=== PATIENT | male | born 1935 | race Caucasian/White ===

== ENCOUNTER → 2016-11-17 | Outpatient (CLI) | payer OTHER, BC | END | disposition home or self-care (01) | DX: R26.2 Difficulty in walking, not elsewhere classified (principal); M62.81 Muscle weakness (generalized); M25.551 Pain in right hip; M25.651 Stiffness of right hip, not elsewhere classified | CPT/HCPCS: 97110 GP; 97150 GO; 97161 GP; 97165 GO; G8978 GP; G8979 GP; G8980 GP; G8987 GO; G8988 GO; G8989 GO ==

== ENCOUNTER 2016-12-07 08:23 | Inpatient (IN) | payer OTHER, BC ==
[~2016-12-07] VITALS: Ht 170.2 cm; Wt 76.7 kg
[~2016-12-07 08:23] MED LIST: ALEVE220 M2 PO; HYTRIN5 MG PO; LO-DOSE ASPIRIN81 M2 PO; ZOCOR40 MG PO
[2016-12-07 09:04] VITALS: BP 154/70
[2016-12-07 14:58] LABS: MCHC 28.8 G/DL (30.0-36.0); MCV 83.6 FL (86-99); MEAN PLAT.VOLUME 9.7 uM^3 (9.0-12.4); PLATELET COUNT 263 K/uL (156-360); RBC DIS.WIDTH-CV 16.3 % (11.8-14.6); RBC DIS.WIDTH-SD 49.2 % (39-53); RED BLOOD COUNT 3.83 M/uL (4.00-5.50); WHITE BLOOD COUNT 13.6 K/uL (4.1-10.2)
[2016-12-07 15:13] VITALS: BP 147/65
[2016-12-07 20:04] VITALS: BP 144/63
[2016-12-08 00:21] VITALS: BP 138/60
[2016-12-08 04:11] VITALS: BP 121/59
[2016-12-08 04:59] LABS: HEMATOCRIT 31.2 % (38.0-50.0); MCV 81.3 FL (86-99)
[2016-12-08 05:06] LABS: CHLORIDE 105 mEq/L (99-109); POTASSIUM 4.1 mEq/L (3.7-5.4); SODIUM 135 mEq/L (136-147)
[2016-12-08 05:08] LABS: GLUCOSE 146 mg/dL (70-99)
[2016-12-08 05:09] LABS: ANION GAP 8 MEQ/L (2-14)
[2016-12-08 05:12] LABS: GFR ESTIMATE (CALCULATED) > 59 mL/min/
[2016-12-08 05:13] LABS: UREA NITROGEN (BUN) 7 mg/dL (9-23)
[2016-12-08 08:00] VITALS: BP 122/57
[2016-12-08 11:59] VITALS: BP 135/64
[2016-12-08 15:39] VITALS: BP 159/67
[2016-12-08] MEDS ORDERED: HYDROCODON-ACE1 EAC7 PO (19:28)
[2016-12-08] MEDS ORDERED: LOVENOX40 MG/0.4 SC (19:28)
[2016-12-08 20:01] VITALS: BP 158/70
[2016-12-09 00:16] VITALS: BP 132/62
[2016-12-09 04:20] VITALS: BP 140/61
[2016-12-09 08:00] VITALS: BP 130/59
[2016-12-09 11:59] VITALS: BP 115/56
[2016-12-09 16:07] VITALS: BP 122/59
[2016-12-09 20:02] VITALS: BP 138/65
[2016-12-10] VITALS (8 sets, daily range): BP systolic 119–147; BP diastolic 58–65
[2016-12-11 04:45] VITALS: BP 131/62
[2016-12-11 08:08] VITALS: BP 138/64
[2016-12-11 12:16] VITALS: BP 119/57
== END 2016-12-11 13:05 | DRG 470 ==
LOC: 2SOUTH 08:23 → 3WEST 08:23 → 2SOUTH 09:17 → 3WEST 15:03 → 3EAST 12-10 16:46
PROVIDERS: Orthopaedic Surgery
PROC: 0SR902A Replacement of Right Hip Joint with Metal on Polyethylene Synthetic Substitute, Uncemented, Open Approach (ICD-10-PCS; 2016-12-07)
PROC: 0BB63ZX Excision of Right Lower Lobe Bronchus, Percutaneous Approach, Diagnostic (ICD-10-PCS; principal; 2016-12-10)
DX: M16.11 Unilateral primary osteoarthritis, right hip (principal); C34.31 Malignant neoplasm of lower lobe, right bronchus or lung; R59.1 Generalized enlarged lymph nodes; E78.5 Hyperlipidemia, unspecified; Z87.891 Personal history of nicotine dependence; R91.8 Other nonspecific abnormal finding of lung field; E78.00 Pure hypercholesterolemia, unspecified; N40.1 Benign prostatic hyperplasia with lower urinary tract symptoms; G25.0 Essential tremor; R73.9 Hyperglycemia, unspecified; I10 Essential (primary) hypertension; D62 Acute posthemorrhagic anemia
CPT/HCPCS: 71010; 71020; 71260; 73501; 77012; 80048; 85014; 85018; 85027; 88305; 88341 TC; 88342 TC; 97530 GP; J0131; J0690; J1650; J3010; J7030; J7040; J7050

== ENCOUNTER 2017-01-07 12:41 | Day surgery (SDC) | payer OTHER, BC ==
[~2017-01-07] VITALS: Ht 167.6 cm; Wt 75.4 kg
[~2017-01-07 12:41] MED LIST changes: +FERROUS SULFAT325 MG PO; +HYDROCODON-ACE1 EAC7 PO; +LOVENOX40 MG/0.4 SC
[2017-01-07 13:19] VITALS: BP 155/71
[2017-01-07 13:43] LABS: BASOPHIL COUNT 0.1 K/uL (0-0.1); EOSINOPHIL COUNT 0.4 K/uL (0-0.3); HEMATOCRIT 37.4 % (38.0-50.0); IMMATURE GRANULOCYTE (%) 0.8 % (0.0-0.7); IMMATURE GRANULOCYTE COUNT 0.1 K/uL; INSTRUMENT ABS NEUTROPHIL CT 10.9 K/uL; LYMPHOCYTE COUNT 1.1 K/uL (1.0-2.8); MCH 25.4 PG (29.0-34.0); MCHC 30.7 G/DL (30.0-36.0); MCV 82.7 FL (86-99); MEAN PLAT.VOLUME 9.7 uM^3 (9.0-12.4); NEUTROPHIL (%) 80.7 % (45-76); NEUTROPHIL COUNT 10.9 K/uL (1.8-6.4); PLATELET COUNT 292 K/uL (156-360); RBC DIS.WIDTH-SD 47.9 % (39-53); RED BLOOD COUNT 4.52 M/uL (4.00-5.50); WHITE BLOOD COUNT 13.5 K/uL (4.1-10.2)
[2017-01-07 13:55] LABS: INTER. NORMALIZED RATIO 1.1; PROTHROMBIN TIME 11.5 (9.2-11.2)
[2017-01-07 14:24] LABS: ALKALINE PHOSPHATASE 139 IU/L (3-129); ANION GAP 10 MEQ/L (2-14); CHLORIDE 102 MEQ/L (99-109); GFR ESTIMATE (CALCULATED) > 59 mL/min/; GLUCOSE 121 mg/dL (70-99); POTASSIUM 3.9 MEQ/L (3.7-5.4); SAMPLE HEMOLYSIS CHECK 0; SAMPLE ICTERIC CHECK 0; SAMPLE LIPEMIA CHECK 0; SODIUM 137 MEQ/L (136-147); TOTAL BILIRUBIN 0.7 MG/DL (0.0-1.0); UREA NITROGEN (BUN) 11 mg/dL (9-23)
[2017-01-07] MEDS ORDERED: HYDROCODON-ACE1 EAC7 PO (15:47)
[2017-01-07] MEDS ORDERED: COLACE100 MG PO (15:47)
[2017-01-07 16:55] VITALS: BP 142/68
[2017-01-07 17:55] VITALS: BP 130/61
== END 2017-01-07 18:05 | disposition home or self-care (01) ==
LOC: SDC 12:41
PROVIDERS: Thoracic Surgery (Cardiothoracic Vascular Surgery)
PROC: 07B74ZX Excision of Thorax Lymphatic, Percutaneous Endoscopic Approach, Diagnostic (ICD-10-PCS; principal; 2017-01-07)
DX: R59.0 Localized enlarged lymph nodes (principal); C34.31 Malignant neoplasm of lower lobe, right bronchus or lung; J60 Coalworker's pneumoconiosis; Z87.891 Personal history of nicotine dependence; E78.5 Hyperlipidemia, unspecified; Z96.641 Presence of right artificial hip joint; Z85.828 Personal history of other malignant neoplasm of skin; Z80.0 Family history of malignant neoplasm of digestive organs
CPT/HCPCS: 80053; 85025; 85610; 88305; J0690; J2405; J3010

== ENCOUNTER → 2017-01-15 | Outpatient (CLI) | payer OTHER, BC ==
[~2017-01-15] MED LIST changes: +COLACE100 MG PO
[2017-01-15 13:05] LABS: BASE EXCESS 3.2 mEq/L (-3 to +3); BICARBONATE 26.9 mEq/L (22-26); CARBOXY HGB 2.3 % (0-5); METHEMOGLOBIN 1.3 % (0-1.5); PCO2 37 mm Hg (35-45); PO2 67 mm Hg (80-100); pH 7.47 (7.35-7.45)
[2017-01-15 13:06] LABS: COMMENTS - BLOOD GASES AC+; DEVICE ROOM AIR; FI02 21 %; SITE LR; TOTAL RESP RATE 16 resp/min
== END | disposition home or self-care (01) ==
LOC: RES 12:42
PROVIDERS: Thoracic Surgery (Cardiothoracic Vascular Surgery)
DX: R09.02 Hypoxemia (principal); J98.4 Other disorders of lung; R94.2 Abnormal results of pulmonary function studies; C34.90 Malignant neoplasm of unspecified part of unspecified bronchus or lung
CPT/HCPCS: 36600; 82803; 94060; 94726; 94729

== ENCOUNTER 2017-07-26 08:04 | Inpatient (IN) | payer OTHER, BC ==
[~2017-07-26] VITALS: Ht 167.6 cm; Wt 65.8 kg
[~2017-07-26 08:04] MED LIST changes: +ENDOCET 5-3251 EACH PO; +SIMVASTATIN80 MG PO; +STOOL SOFTENER100 MG PO
[2017-07-26 08:33] LABS: BASE EXCESS -0.4 mEq/L (-3 to +3); BICARBONATE 21.5 mEq/L (22-26); CARBOXY HGB 2.7 % (0-5); COMMENTS - BLOOD GASES A+C+; DEVICE MASK VENT; FI02 100 %; METHEMOGLOBIN 1.1 % (0-1.5); MODE NSPONT; PCO2 27 mm Hg (35-45); PO2 402 mm Hg (80-100); SITE RR; pH 7.51 (7.35-7.45)
[2017-07-26 08:34] LABS: PEEP 5 CM/H20; PRES. SUPPORT 15 CM/H2O; TOTAL RESP RATE 31 resp/min
[2017-07-26 08:40] LABS: BASOPHIL (%) 0.3 % (0-1); EOSINOPHIL (%) 1.8 % (0-5); EOSINOPHIL COUNT 0.2 K/uL (0-0.3); HEMATOCRIT 38.6 % (38.0-50.0); HEMOGLOBIN 12.3 G/DL (12.5-16.6); IMMATURE GRANULOCYTE (%) 0.8 % (0.0-0.7); LYMPHOCYTE (%) 4.5 % (15-42); LYMPHOCYTE COUNT 0.4 K/uL (1.0-2.8); MCH 28.1 PG (29.0-34.0); MCHC 31.9 G/DL (30.0-36.0); MCV 88.1 FL (86-99); MONOCYTE (%) 8.5 % (3-12); MONOCYTE COUNT 0.7 K/uL (0-0.8); NEUTROPHIL (%) 84.1 % (45-76); NEUTROPHIL COUNT 7.3 K/uL (1.8-6.4); PLATELET COUNT 120 K/uL (156-360); RBC DIS.WIDTH-CV 17.2 % (11.8-14.6); RBC DIS.WIDTH-SD 55.4 % (39-53); RED BLOOD COUNT 4.38 M/uL (4.00-5.50); WHITE BLOOD COUNT 8.7 K/uL (4.1-10.2)
[2017-07-26 08:46] LABS: INTER. NORMALIZED RATIO 1.2
[2017-07-26 08:48] LABS: PTT 29.8 SEC (25-37)
[2017-07-26 08:53] LABS: CHLORIDE 102 mEq/L (99-109); POTASSIUM 4.2 mEq/L (3.7-5.4); SODIUM 134 mEq/L (136-147)
[2017-07-26 08:54] LABS: GLUCOSE 203 mg/dL (70-99)
[2017-07-26 08:58] LABS: CREATININE 0.9 mg/dL (0.6-1.3); GFR ESTIMATE (CALCULATED) > 59 mL/min/ (58.99-99999)
[2017-07-26 08:59] LABS: UREA NITROGEN (BUN) 17 mg/dL (9-23)
[2017-07-26 09:01] LABS: TROP-I INTERPRETATION NEGATIVE; TROPONIN-I 0.04 ng/mL (0.0-0.30)
[2017-07-26] MEDS ORDERED: PROVENTIL HFA6.7 GM IH (10:55)
[2017-07-26] MEDS ORDERED: HERB-LAX (10:59)
[2017-07-26 13:07] VITALS: BP 114/64
[2017-07-26 16:50] VITALS: BP 109/60
[2017-07-26 19:35] VITALS: BP 99/53
[2017-07-27 00:09] VITALS: BP 121/65
[2017-07-27 03:56] VITALS: BP 107/64
[2017-07-27 06:49] LABS: HEMATOCRIT 36.5 % (38.0-50.0); HEMOGLOBIN 11.5 G/DL (12.5-16.6); MCH 28.3 PG (29.0-34.0); MCHC 31.5 G/DL (30.0-36.0); MCV 89.7 FL (86-99); PLATELET COUNT 130 K/uL (156-360); RBC DIS.WIDTH-CV 16.5 % (11.8-14.6); RBC DIS.WIDTH-SD 54.7 % (39-53); RED BLOOD COUNT 4.07 M/uL (4.00-5.50)
[2017-07-27 07:11] LABS: ALBUMIN 2.8 G/DL (3.2-4.8); ALKALINE PHOSPHATASE 125 IU/L (3-129); ALT (GPT) 9 IU/L (3-49); AST (GOT) 12 IU/L (2-34); CHLORIDE 101 MEQ/L (99-109); GFR ESTIMATE (CALCULATED) > 59 mL/min/ (58.99-99999); GLUCOSE 303 mg/dL (70-99); POTASSIUM 4.7 MEQ/L (3.7-5.4); SODIUM 134 MEQ/L (136-147); TOTAL BILIRUBIN 0.8 MG/DL (0.0-1.0); UREA NITROGEN (BUN) 19 mg/dL (9-23)
[2017-07-27 08:00] VITALS: BP 116/66
[2017-07-27 08:42] LABS: Estimated Average Glucose 117 mg/dL (70-123); HEMOGLOBIN A1c (GLYCOHEMOGLOB) 5.7 % HGB (Below 5.7)
[2017-07-27 11:52] VITALS: BP 110/62
[2017-07-27 16:22] VITALS: BP 115/66
[2017-07-27 19:40] VITALS: BP 111/79
[2017-07-28 00:31] VITALS: BP 101/55
[2017-07-28 03:36] VITALS: BP 107/54
[2017-07-28 06:42] LABS: HEMATOCRIT 33.5 % (38.0-50.0); HEMOGLOBIN 10.2 G/DL (12.5-16.6); MCH 27.6 PG (29.0-34.0); MCHC 30.4 G/DL (30.0-36.0); MCV 90.5 FL (86-99); PLATELET COUNT 125 K/uL (156-360); RBC DIS.WIDTH-CV 16.3 % (11.8-14.6); RBC DIS.WIDTH-SD 54.1 % (39-53); WHITE BLOOD COUNT 12.3 K/uL (4.1-10.2)
[2017-07-28 07:12] LABS: ALBUMIN 2.6 G/DL (3.2-4.8); ALKALINE PHOSPHATASE 104 IU/L (3-129); ALT (GPT) 10 IU/L (3-49); AST (GOT) 10 IU/L (2-34); CHLORIDE 104 MEQ/L (99-109); GFR ESTIMATE (CALCULATED) > 59 mL/min/ (58.99-99999); GLUCOSE 172 mg/dL (70-99); POTASSIUM 4.3 MEQ/L (3.7-5.4); SODIUM 138 MEQ/L (136-147); TOTAL PROTEIN 4.7 G/DL (6.4-8.3); UREA NITROGEN (BUN) 21 mg/dL (9-23)
[2017-07-28 07:13] LABS: TOTAL BILIRUBIN 0.6 MG/DL (0.0-1.0)
[2017-07-28 07:50] VITALS: BP 111/61
[2017-07-28 11:50] VITALS: BP 118/64
[2017-07-28 16:15] VITALS: BP 105/52
[2017-07-28 20:26] VITALS: BP 114/54
[2017-07-29 00:10] VITALS: BP 115/63
[2017-07-29 06:38] LABS: HEMATOCRIT 31.7 % (38.0-50.0); HEMOGLOBIN 9.7 G/DL (12.5-16.6); MCH 27.5 PG (29.0-34.0); MCHC 30.6 G/DL (30.0-36.0); MCV 89.8 FL (86-99); PLATELET COUNT 125 K/uL (156-360); RBC DIS.WIDTH-CV 16.5 % (11.8-14.6); RBC DIS.WIDTH-SD 54.5 % (39-53); RED BLOOD COUNT 3.53 M/uL (4.00-5.50); WHITE BLOOD COUNT 11.3 K/uL (4.1-10.2)
[2017-07-29 07:51] VITALS: BP 144/66
[2017-07-29 08:00] LABS: ALBUMIN 2.7 G/DL (3.2-4.8); CHLORIDE 105 MEQ/L (99-109); POTASSIUM 4.4 MEQ/L (3.7-5.4); SODIUM 137 MEQ/L (136-147); TOTAL BILIRUBIN 0.7 MG/DL (0.0-1.0)
[2017-07-29 08:06] LABS: ALKALINE PHOSPHATASE 95 IU/L (3-129); ALT (GPT) 10 IU/L (3-49); AST (GOT) 12 IU/L (2-34); CREATININE 0.8 MG/DL (0.6-1.3); GFR ESTIMATE (CALCULATED) > 59 mL/min/ (58.99-99999); GLUCOSE 136 mg/dL (70-99); TOTAL PROTEIN 4.9 G/DL (6.4-8.3); UREA NITROGEN (BUN) 20 mg/dL (9-23)
[2017-07-29 15:23] VITALS: BP 138/63
[2017-07-29 23:55] VITALS: BP 127/60
[2017-07-30 06:03] LABS: HEMATOCRIT 32.7 % (38.0-50.0); HEMOGLOBIN 10.2 G/DL (12.5-16.6); MCHC 31.2 G/DL (30.0-36.0); MCV 89.8 FL (86-99); PLATELET COUNT 139 K/uL (156-360); RBC DIS.WIDTH-CV 16.6 % (11.8-14.6); RED BLOOD COUNT 3.64 M/uL (4.00-5.50); WHITE BLOOD COUNT 9.6 K/uL (4.1-10.2)
[2017-07-30 06:32] LABS: ALBUMIN 2.6 G/DL (3.2-4.8); ALKALINE PHOSPHATASE 90 IU/L (3-129); ALT (GPT) 11 IU/L (3-49); AST (GOT) 13 IU/L (2-34); CHLORIDE 106 MEQ/L (99-109); CREATININE 0.9 MG/DL (0.6-1.3); GFR ESTIMATE (CALCULATED) > 59 mL/min/ (58.99-99999); GLUCOSE 122 mg/dL (70-99); POTASSIUM 4.6 MEQ/L (3.7-5.4); SODIUM 139 MEQ/L (136-147); TOTAL BILIRUBIN 0.8 MG/DL (0.0-1.0); TOTAL PROTEIN 4.5 G/DL (6.4-8.3); UREA NITROGEN (BUN) 17 mg/dL (9-23)
[2017-07-30 07:55] VITALS: BP 140/69
[2017-07-30 16:00] VITALS: BP 129/62
[2017-07-31 00:29] VITALS: BP 144/66
[2017-07-31 06:49] LABS: HEMATOCRIT 33.8 % (38.0-50.0); HEMOGLOBIN 10.3 G/DL (12.5-16.6); MCH 27.4 PG (29.0-34.0); MCHC 30.5 G/DL (30.0-36.0); MCV 89.9 FL (86-99); PLATELET COUNT 124 K/uL (156-360); RBC DIS.WIDTH-CV 16.8 % (11.8-14.6); RBC DIS.WIDTH-SD 55.7 % (39-53); RED BLOOD COUNT 3.76 M/uL (4.00-5.50); WHITE BLOOD COUNT 8.9 K/uL (4.1-10.2)
[2017-07-31 07:15] LABS: ALBUMIN 2.5 G/DL (3.2-4.8); ALKALINE PHOSPHATASE 85 IU/L (3-129); ALT (GPT) 14 IU/L (3-49); AST (GOT) 13 IU/L (2-34); CHLORIDE 107 MEQ/L (99-109); CREATININE 0.8 MG/DL (0.6-1.3); GFR ESTIMATE (CALCULATED) > 59 mL/min/ (58.99-99999); POTASSIUM 4.3 MEQ/L (3.7-5.4); SODIUM 140 MEQ/L (136-147); TOTAL BILIRUBIN 0.7 MG/DL (0.0-1.0); TOTAL PROTEIN 4.5 G/DL (6.4-8.3); UREA NITROGEN (BUN) 16 mg/dL (9-23)
[2017-07-31 07:18] LABS: GLUCOSE 68 mg/dL (70-99)
[2017-07-31 07:27] VITALS: BP 147/67
[2017-07-31 15:10] VITALS: BP 137/63
[2017-08-01 00:04] VITALS: BP 158/72
[2017-08-01 07:20] VITALS: BP 157/67
[2017-08-01 08:34] LABS: HEMATOCRIT 35.7 % (38.0-50.0); HEMOGLOBIN 11.1 G/DL (12.5-16.6); MCHC 31.1 G/DL (30.0-36.0); MCV 89.9 FL (86-99); PLATELET COUNT 134 K/uL (156-360); RBC DIS.WIDTH-CV 16.7 % (11.8-14.6); RBC DIS.WIDTH-SD 55.2 % (39-53); RED BLOOD COUNT 3.97 M/uL (4.00-5.50)
[2017-08-01 09:00] LABS: ALBUMIN 2.8 G/DL (3.2-4.8); ALKALINE PHOSPHATASE 88 IU/L (3-129); ALT (GPT) 14 IU/L (3-49); AST (GOT) 13 IU/L (2-34); CHLORIDE 106 MEQ/L (99-109); CREATININE 0.8 MG/DL (0.6-1.3); GFR ESTIMATE (CALCULATED) > 59 mL/min/ (58.99-99999); GLUCOSE 89 mg/dL (70-99); POTASSIUM 4.3 MEQ/L (3.7-5.4); SODIUM 139 MEQ/L (136-147); TOTAL BILIRUBIN 0.9 MG/DL (0.0-1.0); TOTAL PROTEIN 4.6 G/DL (6.4-8.3); UREA NITROGEN (BUN) 18 mg/dL (9-23)
[2017-08-01 16:14] VITALS: BP 154/68
[2017-08-01 23:29] VITALS: BP 145/69
[2017-08-02 05:52] LABS: HEMATOCRIT 36.1 % (38.0-50.0); HEMOGLOBIN 11.5 G/DL (12.5-16.6); MCH 28.8 PG (29.0-34.0); MCHC 31.9 G/DL (30.0-36.0); MCV 90.5 FL (86-99); NRBC (%) 0.3 /100 WBC (0-0); PLATELET COUNT 140 K/uL (156-360); RBC DIS.WIDTH-CV 16.8 % (11.8-14.6); RBC DIS.WIDTH-SD 56.1 % (39-53); RED BLOOD COUNT 3.99 M/uL (4.00-5.50); WHITE BLOOD COUNT 7.8 K/uL (4.1-10.2)
[2017-08-02 06:32] LABS: ALBUMIN 2.9 G/DL (3.2-4.8); ALKALINE PHOSPHATASE 92 IU/L (3-129); ALT (GPT) 15 IU/L (3-49); AST (GOT) 11 IU/L (2-34); CHLORIDE 104 MEQ/L (99-109); CREATININE 0.9 MG/DL (0.6-1.3); GFR ESTIMATE (CALCULATED) > 59 mL/min/ (58.99-99999); GLUCOSE 181 mg/dL (70-99); POTASSIUM 4.4 MEQ/L (3.7-5.4); SODIUM 138 MEQ/L (136-147); TOTAL BILIRUBIN 0.8 MG/DL (0.0-1.0); TOTAL PROTEIN 4.7 G/DL (6.4-8.3); UREA NITROGEN (BUN) 19 mg/dL (9-23)
[2017-08-02 07:05] VITALS: BP 150/70
[2017-08-02 15:05] VITALS: BP 132/63
[2017-08-03] VITALS: BP 128/78
[2017-08-03 08:34] LABS: HEMATOCRIT 37.6 % (38.0-50.0); HEMOGLOBIN 11.7 G/DL (12.5-16.6); MCH 28.5 PG (29.0-34.0); MCHC 31.1 G/DL (30.0-36.0); MCV 91.7 FL (86-99); PLATELET COUNT 127 K/uL (156-360); RBC DIS.WIDTH-CV 17.3 % (11.8-14.6); RBC DIS.WIDTH-SD 58.4 % (39-53); WHITE BLOOD COUNT 7.3 K/uL (4.1-10.2)
[2017-08-03 09:12] LABS: ALBUMIN 2.7 G/DL (3.2-4.8); ALKALINE PHOSPHATASE 93 IU/L (3-129); ALT (GPT) 19 IU/L (3-49); CHLORIDE 105 MEQ/L (99-109); CREATININE 0.8 MG/DL (0.6-1.3); GFR ESTIMATE (CALCULATED) > 59 mL/min/ (58.99-99999); POTASSIUM 3.9 MEQ/L (3.7-5.4); SODIUM 138 MEQ/L (136-147); TOTAL BILIRUBIN 0.8 MG/DL (0.0-1.0); TOTAL PROTEIN 4.7 G/DL (6.4-8.3); UREA NITROGEN (BUN) 16 mg/dL (9-23)
[2017-08-03 09:19] LABS: AST (GOT) 18 IU/L (2-34); GLUCOSE 99 mg/dL (70-99)
[2017-08-03] MEDS ORDERED: SPIRIVA RESPIMAT4 GM IH (13:00)
[2017-08-03] MEDS ORDERED: PREDNISONE20 MG PO (13:01)
[2017-08-03] MEDS ORDERED: ADVAIR HFA120 INHALA IH (13:01)
[2017-08-03 15:10] VITALS: BP 118/69
== END 2017-08-03 17:51 | disposition home or self-care (01) | DRG 189 ==
LOC: EME → EDBD 08:04 → EDOF 11:18 → 5SOUTH 11:18 → ENRESERV 11:20 → 5SOUTH 12:58
PROVIDERS: Emergency Medicine; Internal Medicine
PROC: 5A09359 Assistance with Respiratory Ventilation, Less than 24 Consecutive Hours, Continuous Negative Airway Pressure (ICD-10-PCS; principal; 2017-07-26)
DX: J96.91 Respiratory failure, unspecified with hypoxia (principal); J18.9 Pneumonia, unspecified organism; J44.1 Chronic obstructive pulmonary disease with (acute) exacerbation; J44.0 Chronic obstructive pulmonary disease with (acute) lower respiratory infection; C34.31 Malignant neoplasm of lower lobe, right bronchus or lung; N40.0 Benign prostatic hyperplasia without lower urinary tract symptoms; D69.6 Thrombocytopenia, unspecified; E78.5 Hyperlipidemia, unspecified; R00.0 Tachycardia, unspecified; Z96.643 Presence of artificial hip joint, bilateral; I10 Essential (primary) hypertension; D64.9 Anemia, unspecified; R91.1 Solitary pulmonary nodule; K59.00 Constipation, unspecified; T38.0X5A Adverse effect of glucocorticoids and synthetic analogues, initial encounter; Y84.2 Radiological procedure and radiotherapy as the cause of abnormal reaction of the patient, or of later complication, without mention of misadventure at the time of the procedure; R73.9 Hyperglycemia, unspecified; Z79.899 Other long term (current) drug therapy; Z99.81 Dependence on supplemental oxygen; Z79.82 Long term (current) use of aspirin; Z87.891 Personal history of nicotine dependence; Z85.828 Personal history of other malignant neoplasm of skin; Z92.21 Personal history of antineoplastic chemotherapy; Z92.3 Personal history of irradiation; Z82.49 Family history of ischemic heart disease and other diseases of the circulatory system
CPT/HCPCS: 36600; 71010; 71020; 71275; 76937; 80048; 80053; 80202; 82803; 82948; 83036; 83880; 84484; 85025; 85027; 85610; 85730; 87040; 87070; 87205; 93005; 94002; 94640; 94640 76; 94760; 94799; 99202; 99281; 99285; C1894; J0456; J0696; J1644; J1815; J2405; J2543; J2930; J3370; J7030; J7040; J7050; J7512; J7644

== ENCOUNTER 2017-09-18 23:27 | Inpatient (IN) | payer OTHER, BC ==
[~2017-09-18] VITALS: Ht 170.2 cm; Wt 70.6 kg
[~2017-09-18 23:27] MED LIST changes: +ADVAIR HFA120 INHALA IH; +HERB-LAX; +PREDNISONE20 MG PO; +PROVENTIL HFA6.7 GM IH; +SPIRIVA RESPIMAT4 GM IH
[2017-09-18 23:50] LABS: HEMATOCRIT 33.9 % (38.0-50.0); MCHC 32.2 G/DL (30.0-36.0); MCV 87.1 FL (86-99); PLATELET COUNT 185 K/uL (156-360); RBC DIS.WIDTH-CV 16.3 % (11.8-14.6); RBC DIS.WIDTH-SD 51.3 % (39-53); RED BLOOD COUNT 3.89 M/uL (4.00-5.50); WHITE BLOOD COUNT 14.4 K/uL (4.1-10.2)
[2017-09-18 23:51] LABS: HEMOGLOBIN 10.9 G/DL (12.5-16.6)
[2017-09-19 00:02] LABS: CHLORIDE 100 mEq/L (99-109); POTASSIUM 3.9 mEq/L (3.7-5.4); SODIUM 133 mEq/L (136-147)
[2017-09-19 00:04] LABS: GLUCOSE 164 mg/dL (70-99)
[2017-09-19 00:08] LABS: CREATININE 0.7 mg/dL (0.6-1.3); GFR ESTIMATE (CALCULATED) > 59 mL/min/ (58.99-99999)
[2017-09-19 00:09] LABS: UREA NITROGEN (BUN) 7 mg/dL (9-23)
[2017-09-19 00:16] LABS: TROP-I INTERPRETATION NEGATIVE; TROPONIN-I 0.01 ng/mL (0.0-0.30)
[2017-09-19 04:02] VITALS: BP 103/58
[2017-09-19 06:16] LABS: BASOPHIL (%) 0.3 % (0-1); EOSINOPHIL (%) 0.1 % (0-5); HEMATOCRIT 31.4 % (38.0-50.0); HEMOGLOBIN 9.7 G/DL (12.5-16.6); IMMATURE GRANULOCYTE (%) 1.1 % (0.0-0.7); LYMPHOCYTE (%) 1.3 % (15-42); LYMPHOCYTE COUNT 0.1 K/uL (1.0-2.8); MCH 27.2 PG (29.0-34.0); MCHC 30.9 G/DL (30.0-36.0); MONOCYTE (%) 1.2 % (3-12); MONOCYTE COUNT 0.1 K/uL (0-0.8); NEUTROPHIL COUNT 10.5 K/uL (1.8-6.4); PLATELET COUNT 154 K/uL (156-360); RBC DIS.WIDTH-SD 51.7 % (39-53); RED BLOOD COUNT 3.57 M/uL (4.00-5.50); WHITE BLOOD COUNT 10.9 K/uL (4.1-10.2)
[2017-09-19 06:36] LABS: CHLORIDE 104 MEQ/L (99-109); CREATININE 0.7 MG/DL (0.6-1.3); GFR ESTIMATE (CALCULATED) > 59 mL/min/ (58.99-99999); GLUCOSE 265 mg/dL (70-99); POTASSIUM 4.1 MEQ/L (3.7-5.4); SODIUM 138 MEQ/L (136-147); UREA NITROGEN (BUN) 7 mg/dL (9-23)
[2017-09-19 08:13] VITALS: BP 109/57
[2017-09-19 08:21] VITALS: BP 128/60
[2017-09-19 11:47] VITALS: BP 112/57
[2017-09-19 16:10] VITALS: BP 139/67
[2017-09-20 00:15] VITALS: BP 137/62
[2017-09-20 05:48] LABS: BASOPHIL (%) 0 % (0-1); EOSINOPHIL (%) 0 % (0-5); HEMATOCRIT 30.3 % (38.0-50.0); HEMOGLOBIN 9.4 G/DL (12.5-16.6); LYMPHOCYTE (%) 1.8 % (15-42); LYMPHOCYTE COUNT 0.2 K/uL (1.0-2.8); MCH 27.6 PG (29.0-34.0); MCV 88.9 FL (86-99); MONOCYTE (%) 2.2 % (3-12); MONOCYTE COUNT 0.2 K/uL (0-0.8); NEUTROPHIL COUNT 9.3 K/uL (1.8-6.4); PLATELET COUNT 164 K/uL (156-360); RBC DIS.WIDTH-CV 15.9 % (11.8-14.6); RED BLOOD COUNT 3.41 M/uL (4.00-5.50); WHITE BLOOD COUNT 9.8 K/uL (4.1-10.2)
[2017-09-20 06:12] LABS: CHLORIDE 106 MEQ/L (99-109); CREATININE 0.7 MG/DL (0.6-1.3); GFR ESTIMATE (CALCULATED) > 59 mL/min/ (58.99-99999); GLUCOSE 325 mg/dL (70-99); POTASSIUM 4.3 MEQ/L (3.7-5.4); SODIUM 142 MEQ/L (136-147); UREA NITROGEN (BUN) 14 mg/dL (9-23)
[2017-09-20 08:12] VITALS: BP 136/60
[2017-09-20] MEDS ORDERED: SPIRIVA1 INHALATI IH (13:37)
[2017-09-20] MEDS ORDERED: ADVAIR HFA120 INHALA IH (13:38)
[2017-09-20] MEDS ORDERED: ALBUTEROL2.5 MG/3 M IH (13:39)
[2017-09-20 16:08] VITALS: BP 116/56
[2017-09-20 23:36] VITALS: BP 136/63
[2017-09-21 06:46] LABS: HEMATOCRIT 30.1 % (38.0-50.0); HEMOGLOBIN 9.2 G/DL (12.5-16.6); MCH 27.8 PG (29.0-34.0); MCHC 30.6 G/DL (30.0-36.0); MCV 90.9 FL (86-99); PLATELET COUNT 177 K/uL (156-360); RBC DIS.WIDTH-CV 16.2 % (11.8-14.6); RBC DIS.WIDTH-SD 53.8 % (39-53); RED BLOOD COUNT 3.31 M/uL (4.00-5.50); WHITE BLOOD COUNT 11.9 K/uL (4.1-10.2)
[2017-09-21 07:17] LABS: CHLORIDE 108 MEQ/L (99-109); CREATININE 0.6 MG/DL (0.6-1.3); GFR ESTIMATE (CALCULATED) > 59 mL/min/ (58.99-99999); POTASSIUM 4.1 MEQ/L (3.7-5.4); SODIUM 143 MEQ/L (136-147); UREA NITROGEN (BUN) 16 mg/dL (9-23)
[2017-09-21 07:18] LABS: GLUCOSE 155 mg/dL (70-99)
[2017-09-21 08:26] VITALS: BP 111/55
[2017-09-21 15:34] VITALS: BP 145/65
[2017-09-21 23:29] VITALS: BP 169/77
[2017-09-22 05:11] VITALS: BP 151/65
[2017-09-22 06:22] LABS: HEMATOCRIT 30.1 % (38.0-50.0); HEMOGLOBIN 9.4 G/DL (12.5-16.6); MCH 28.1 PG (29.0-34.0); MCHC 31.2 G/DL (30.0-36.0); MCV 89.9 FL (86-99); NRBC (%) 0.1 /100 WBC (0-0); PLATELET COUNT 191 K/uL (156-360); RBC DIS.WIDTH-CV 16.1 % (11.8-14.6); RBC DIS.WIDTH-SD 53.2 % (39-53); RED BLOOD COUNT 3.35 M/uL (4.00-5.50); WHITE BLOOD COUNT 13.5 K/uL (4.1-10.2)
[2017-09-22 06:30] LABS: CHLORIDE 104 MEQ/L (99-109); CREATININE 0.6 MG/DL (0.6-1.3); GFR ESTIMATE (CALCULATED) > 59 mL/min/ (58.99-99999); GLUCOSE 145 mg/dL (70-99); POTASSIUM 4.2 MEQ/L (3.7-5.4); SODIUM 138 MEQ/L (136-147); UREA NITROGEN (BUN) 21 mg/dL (9-23)
[2017-09-22 07:55] VITALS: BP 150/72
[2017-09-22] MEDS ORDERED: PREDNISONE20 MG PO (08:55)
[2017-09-22] MEDS ORDERED: AMOX TR-K CLV1 EAC4 PO (08:56)
== END 2017-09-22 14:23 | disposition home health service (06) | DRG 193 ==
LOC: EME 23:27 → 3EAST 09-19 01:45 → EDOF 09-19 01:45 → ENRESERV 09-19 01:48 → 3EAST 09-19 04:01
PROVIDERS: Emergency Medicine Emergency Medical Services; Hospitalist; Internal Medicine; Nurse Practitioner Adult Health
DX: J18.9 Pneumonia, unspecified organism (principal); J44.1 Chronic obstructive pulmonary disease with (acute) exacerbation; E78.5 Hyperlipidemia, unspecified; J96.01 Acute respiratory failure with hypoxia; J96.11 Chronic respiratory failure with hypoxia; J44.0 Chronic obstructive pulmonary disease with (acute) lower respiratory infection; D64.9 Anemia, unspecified; R73.9 Hyperglycemia, unspecified; N40.0 Benign prostatic hyperplasia without lower urinary tract symptoms; C34.90 Malignant neoplasm of unspecified part of unspecified bronchus or lung; Z92.3 Personal history of irradiation; Z92.21 Personal history of antineoplastic chemotherapy; Z85.118 Personal history of other malignant neoplasm of bronchus and lung; Z87.891 Personal history of nicotine dependence; Z99.81 Dependence on supplemental oxygen; Z79.899 Other long term (current) drug therapy; Z79.82 Long term (current) use of aspirin
CPT/HCPCS: 71046; 80048; 82948; 83605; 83880; 84484; 85025; 85027; 87040; 87502; 93005; 94010; 94640; 94640 76; 94799; 99202; 99281; 99285; J0295; J0456; J1644; J1815; J2930; J3475; J7040; J7050; J7512

== ENCOUNTER 2017-11-24 15:53 | Inpatient (IN) | payer OTHER, BC ==
[~2017-11-24] VITALS: Ht 167.6 cm; Wt 61.1 kg
[~2017-11-24 15:53] MED LIST changes: +ALBUTEROL2.5 MG/3 M IH; +AMOX TR-K CLV1 EAC4 PO; +SPIRIVA1 INHALATI IH
[2017-11-24 17:27] LABS: HEMATOCRIT 39.6 % (38.0-50.0); HEMOGLOBIN 12.6 G/DL (12.5-16.6); MCH 27.8 PG (29.0-34.0); MCHC 31.8 G/DL (30.0-36.0); MCV 87.2 FL (86-99); PLATELET COUNT 198 K/uL (156-360); RBC DIS.WIDTH-CV 15.6 % (11.8-14.6); RBC DIS.WIDTH-SD 49.8 % (39-53); RED BLOOD COUNT 4.54 M/uL (4.00-5.50); WHITE BLOOD COUNT 14.4 K/uL (4.1-10.2)
[2017-11-24 17:38] LABS: INTER. NORMALIZED RATIO 1.1
[2017-11-24 17:40] LABS: CHLORIDE 101 mEq/L (99-109); POTASSIUM 4.1 mEq/L (3.7-5.4); SODIUM 139 mEq/L (136-147)
[2017-11-24 17:41] LABS: PTT 33.7 SEC (25-37)
[2017-11-24 17:42] LABS: GLUCOSE 95 mg/dL (70-99)
[2017-11-24 17:46] LABS: CREATININE 0.7 mg/dL (0.6-1.3); GFR ESTIMATE (CALCULATED) > 59 mL/min/ (58.99-99999)
[2017-11-24 17:47] LABS: UREA NITROGEN (BUN) 9 mg/dL (9-23)
[2017-11-24 17:53] LABS: TROP-I INTERPRETATION NEGATIVE; TROPONIN-I 0.01 ng/mL (0.0-0.30)
[2017-11-24] MEDS ORDERED: DUONEB 2.5-0.5 M3 ML AEROSOL (21:35)
[2017-11-25 01:42] VITALS: BP 138/63
[2017-11-25 06:19] LABS: HEMATOCRIT 37.8 % (38.0-50.0); HEMOGLOBIN 11.7 G/DL (12.5-16.6); MCH 27.1 PG (29.0-34.0); MCV 87.7 FL (86-99); PLATELET COUNT 199 K/uL (156-360); RBC DIS.WIDTH-CV 15.2 % (11.8-14.6); RBC DIS.WIDTH-SD 49.2 % (39-53); RED BLOOD COUNT 4.31 M/uL (4.00-5.50); WHITE BLOOD COUNT 10.6 K/uL (4.1-10.2)
[2017-11-25 06:45] LABS: ALKALINE PHOSPHATASE 130 IU/L (3-129); ALT (GPT) 5 IU/L (3-49); AST (GOT) 9 IU/L (2-34); CHLORIDE 103 MEQ/L (99-109); CREATININE 0.7 MG/DL (0.6-1.3); GFR ESTIMATE (CALCULATED) > 59 mL/min/ (58.99-99999); POTASSIUM 4.7 MEQ/L (3.7-5.4); SODIUM 138 MEQ/L (136-147); TOTAL BILIRUBIN 0.9 MG/DL (0.0-1.0); TOTAL PROTEIN 5.6 G/DL (6.4-8.3); UREA NITROGEN (BUN) 9 mg/dL (9-23)
[2017-11-25 06:46] LABS: GLUCOSE 177 mg/dL (70-99)
[2017-11-25 07:35] VITALS: BP 117/58
[2017-11-25 11:00] VITALS: BP 131/84
[2017-11-25 15:00] VITALS: BP 121/65
[2017-11-25 19:30] VITALS: BP 136/80
[2017-11-26] VITALS: BP 136/80
[2017-11-26 07:20] VITALS: BP 143/64
[2017-11-26 15:25] VITALS: BP 138/67
[2017-11-26 19:33] VITALS: BP 142/86
[2017-11-27 00:28] VITALS: BP 138/65
[2017-11-27 06:45] VITALS: BP 152/70
[2017-11-27] MEDS ORDERED: FLUCONAZOLE100 MG PO (08:51)
[2017-11-27] MEDS ORDERED: DEXAMETHASONE4 MG PO (08:51)
[2017-11-27] MEDS ORDERED: LEVETIRACETAM500 MG PO (08:51)
[2017-11-27] MEDS ORDERED: PANTOPRAZOLE SO40 MG PO (08:51)
== END 2017-11-27 15:19 | disposition home health service (06) | DRG 54 ==
LOC: EME 15:53 → 5EAST 21:57 → EDOF 21:57 → ENRESERV 22:00 → EDOF 11-25 01:36 → 5EAST 11-25 01:37
PROVIDERS: Emergency Medicine; Internal Medicine
DX: C79.31 Secondary malignant neoplasm of brain (principal); G93.6 Cerebral edema; J96.10 Chronic respiratory failure, unspecified whether with hypoxia or hypercapnia; R13.10 Dysphagia, unspecified; R29.810 Facial weakness; R53.1 Weakness; J44.9 Chronic obstructive pulmonary disease, unspecified; I10 Essential (primary) hypertension; E78.5 Hyperlipidemia, unspecified; D64.9 Anemia, unspecified; Z66 Do not resuscitate; Z96.641 Presence of right artificial hip joint; Z99.81 Dependence on supplemental oxygen; Z91.81 History of falling; Z85.118 Personal history of other malignant neoplasm of bronchus and lung; Z87.01 Personal history of pneumonia (recurrent); Z92.21 Personal history of antineoplastic chemotherapy; Z92.3 Personal history of irradiation; Z87.891 Personal history of nicotine dependence; Z79.82 Long term (current) use of aspirin
CPT/HCPCS: 70450; 70553; 74230; 77334; 77470; 80048; 80053; 82948; 84484; 85027; 85610; 85730; 92610 GN; 92611 GN; 93005; 94640; 94640 76; 94799; 95819; 99202; 99281; 99285; J1100; J1815; J7030; J8540; S0028